=== PATIENT | female | born 1945 | race Caucasian/White ===

== ENCOUNTER → 2017-01-05 | Outpatient (CLI) | payer BC ==
[~2017-01-05] MED LIST: ANT25 PO; METO50TA7
--- NOTE | 2017-01-05 12:40 | MAMMOGRAPHY REPORT ---
BILATERAL DIGITAL SCREENING MAMMOGRAM WITH CAD: 01/05/2017 CLINICAL HISTORY: Routine screening. Patient has no complaints. TECHNIQUE: Current study was also evaluated with a Computer Aided Detection (CAD) system. Bilatera l CC and MLO views were obtained. COMPARISON: Comparison is made to exams dated: 01/02/2015 mammogram, 01/03/2014 mammogram, 01/03/2014 ultrasound, 12/30/2013 mammogram, 12/29/2012 mammogram, and 12/12/2010 mammogram - [facility]. BREAST COMPOSITION: There are scattered areas of fibroglandular density in both breasts. FINDINGS: No suspicious masses, calcifications, or areas of architectural distortion are noted in e ither breast. There has been no significant interval change compared to prior exams. Scattered bilat eral benign-appearing calcifications are not significantly changed. IMPRESSION: ACR BI-RADS CATEGORY 2: BENIGN There is no mammographic evidence of malignancy. A 1 year screening mammogram is recommended. The p atient will receive written notification of the results. Approximately 10% of breast cancers are not detected with mammography. A negative mammographic repor t should not delay biopsy if a clinically suggestive mass is present. Courtney Garcia M.D. /:01/05/2017 11:49:35 Transfer Car Operator: Desirae Severino, [facility] letter sent: Normal 1/2 BI-RADS Code: ACR BI-RADS Category 2: Benign
== END | disposition home or self-care (01) ==
LOC: C.MAMM 09:47
PROVIDERS: ATTEND Family Medicine
DX: Z12.31 Encounter for screening mammogram for malignant neoplasm of breast (principal)

== ENCOUNTER → 2017-10-12 | Outpatient (CLI) | payer BC | END | disposition home or self-care (01) | LOC: C.MAMM 09:49 | PROVIDERS: ATTEND Family Medicine | DX: M85.88 Other specified disorders of bone density and structure, other site (principal) ==

== ENCOUNTER 2018-02-12 00:54 | Emergency (ER) | payer BC ==
[~2018-02-12] VITALS: Ht 160 cm; Wt 73.0 kg
[~2018-02-12 00:54] MED LIST changes: -METO50TA7; +METO50TA8
[2018-02-12 01:04] VITALS: TEMP 36.4; Ht 160 cm; Wt 73.0 kg
[2018-02-12 02:34] LABS: BASO % 0.5 %; BASO ABS # 0.05 K/uL (0-0.2); EOS % 4.5 %; EOS ABS # 0.42 K/uL (0-0.5); HEMATOCRIT 38.5 % (37-47); IG# 0.03 K/uL (0.00-0.02); LYMPH % 24.3 %; LYMPH ABS # 2.27 K/uL (1.2-3.4); MEAN CELL VOLUME 89.3 fL (80-100); MEAN CORPUSCULAR HEMOGLOBIN 32.5 pg (25-34); MEAN CORPUSCULAR HGB CONC 36.4 g/dl (32-36); MEAN PLATELET VOLUME 11.2 fL (7.4-10.4); MONO % 6.6 %; MONO ABS # 0.62 K/uL (0.11-0.59); NEUT % 63.8 %; NEUT ABS # 5.96 K/uL (1.4-6.5); PLATELET COUNT 221 K/uL (130-400); RED CELL DISTRIBUTION WIDTH CV 13.8 % (11.5-14.5); RED CELL DISTRIBUTION WIDTH SD 44.9 fL (36.4-46.3); WHITE BLOOD COUNT 9.35 K/uL (4.8-10.8)
[2018-02-12] MEDS ORDERED: HydrALAZINE HCL 20 MG/ML VIAL IV. STA (02:47)
--- NOTE | 2018-02-12 02:49 | EMERGENCY ROOM VISIT NOTE ---
History Report prepared by Neo: Carole Pace Under the Supervision of: Dr. Pamela Hines D.O. First contact with patient: 02:01 Chief Complaint: HYPERTENSION Stated Complaint: HIGH BLOOD PRESSURE History of Present Illness The patient is a 72 year old female who presents to the Emergency Room with complaints of persistent high blood pressure starting 1600 today. The patient has a history of hypertension and is on lisinopril and metoprolol. She takes her blood pressure when she feels that it might be high. Today she checked her blood pressure at 1600 because she had a headache. She found that it was high. It is normally not this high. She took an extra dose of metoprolol and lisinopril which normally improves her blood pressure. She continued to check her blood pressure, but found that it would not go down. She has never experienced this before. Her headache is in the front like a sinus headache. She is having some tingling in her feet which she has had before. She denies any nausea, dizziness, blurry vision, chest pain, SOB, fever, chills, cough, leg swelling, change in bowel movement, or urinary symptoms. She notes that she had [place] food for lunch today and notes that she normally does not have change in blood pressure with her diet. She denies any change in activity. She states that she does not drink a lot of water. She had some congestion over the past 2 weeks which has resolved. Source of History: patient Onset: 1600 today Position: other (constitutional) Symptom Intensity: 193/100 Quality: other (high blood pressure) Timing: other (persistent) Associated Symptoms: + headache, No fevers, No chills, No cough, No chest pain, No SOB, No nausea, No urinary symptoms Review of Systems See HPI for pertinent positives & negatives. A total of 10 systems reviewed and were otherwise negative. Past Medical & Surgical Medical Problems: (1) Hypertension Family History No pertinent family history stated. Social History Smoking Status: Never Smoker Marital Status: Occupation Status: retired Current/Historical Medications Scheduled Levothyroxine Sodium (Levothyroxine Sodium), 50 MCG PO DAILY Lisinopril (Prinivil), 10 MG PO DAILY Metoprolol Succinate (Metoprolol Succinate ER), 100 MG PO DAILY Rosuvastatin Calcium (Crestor), 5 MG PO DAILY Allergies Coded Allergies: Penicillins (Verified Allergy, Mild, 2/5/10) Physical Exam Vital Signs Date Time Temp Pulse Resp B/P (MAP) Pulse Ox O2 Delivery O2 Flow Rate FiO2 02/12/18 05:24 53 18 163/78 100 02/12/18 04:30 59 18 160/64 100 Room Air 02/12/18 04:15 52 18 156/95 100 Room Air 02/12/18 04:00 53 18 152/74 100 Room Air 02/12/18 03:45 53 18 173/87 100 Room Air 02/12/18 03:33 50 18 174/90 99 Room Air 02/12/18 02:56 50 16 171/85 99 Room Air 02/12/18 01:42 55 18 204/74 99 Room Air 02/12/18 01:40 54 02/12/18 01:04 36.4 54 20 210/79 100 Room Air Physical Exam GENERAL: alert, well appearing, well nourished, no distress, non-toxic EYE EXAM: normal conjunctiva, PERRL and EOM's grossly intact OROPHARYNX: no exudate, no erythema, lips, buccal mucosa, and tongue normal and mucous membranes are moist NECK: supple, no nuchal rigidity, no adenopathy, non-tender LUNGS: Clear to auscultation. Normal chest wall mechanics HEART: no murmurs, S1 normal and S2 normal ABDOMEN: abdomen soft, non-tender, normo-active bowel sounds, no masses, no rebound or guarding. BACK: Back is symmetrical on inspection and there is no deformity, no midline tenderness, no CVA tenderness. SKIN: no rashes and no bruising UPPER EXTREMITIES: upper extremities are grossly normal. LOWER EXTREMITIES: No pitting edema. NEURO EXAM: Normal sensorium, cranial nerves II-XII grossly intact, normal speech, no gross weakness of arms, no gross weakness of legs. Medical Decision & Procedures ER Provider Diagnostic Interpretation: X-ray: I interpreted the following studies. Chest: Negative for cardiomegaly, focal infiltrate, effusion, pulmonary edema, or wide mediastinum. Radiology results have been interpreted by the [employer] radiologist and reviewed by me. CT Head: Comparison: 11/08/08. Impression: No acute intracranial hemorrhage, mass, or shift in midline structure. Basal ganglia calcifications. Small vessel ischemic changes in the tory-ventricular and subcortical white matter. Laboratory Results 02/12/18 02:05 Red Blood Count 4.31, Mean Corpuscular Volume 89.3, Mean Corpuscular Hemoglobin 32.5, Mean Corpuscular Hemoglobin Concent 36.4, Mean Platelet Volume 11.2, Neutrophils (%) (Auto) 63.8, Lymphocytes (%) (Auto) 24.3, Monocytes (%) (Auto) 6.6, Eosinophils (%) (Auto) 4.5, Basophils (%) (Auto) 0.5, Neutrophils # (Auto) 5.96, Lymphocytes # (Auto) 2.27, Monocytes # (Auto) 0.62, Eosinophils # (Auto) 0.42, Basophils # (Auto) 0.05 02/12/18 02:05 Test 02/12/18 02:05 White Blood Count 9.35 K/uL (4.8-10.8) Red Blood Count 4.31 M/uL (4.2-5.4) Hemoglobin 14.0 g/dL (12.0-16.0) Hematocrit 38.5 % (37-47) Mean Corpuscular Volume 89.3 fL (80-100) Mean Corpuscular Hemoglobin 32.5 pg (25-34) Mean Corpuscular Hemoglobin Concent 36.4 g/dl (32-36) Platelet Count 221 K/uL (130-400) Mean Platelet Volume 11.2 fL (7.4-10.4) Neutrophils (%) (Auto) 63.8 % Lymphocytes (%) (Auto) 24.3 % Monocytes (%) (Auto) 6.6 % Eosinophils (%) (Auto) 4.5 % Basophils (%) (Auto) 0.5 % Neutrophils # (Auto) 5.96 K/uL (1.4-6.5) Lymphocytes # (Auto) 2.27 K/uL (1.2-3.4) Monocytes # (Auto) 0.62 K/uL (0.11-0.59) Eosinophils # (Auto) 0.42 K/uL (0-0.5) Basophils # (Auto) 0.05 K/uL (0-0.2) RDW Standard Deviation 44.9 fL (36.4-46.3) RDW Coefficient of Variation 13.8 % (11.5-14.5) Immature Granulocyte % (Auto) 0.3 % Immature Granulocyte # (Auto) 0.03 K/uL (0.00-0.02) Prothrombin Time 10.4 SECONDS (9.0-12.0) Prothromb Time International Ratio 1.0 (0.9-1.1) Anion Gap 10.0 mmol/L (3-11) Est Creatinine Clear Calc Drug Dose 51.1 ml/min Estimated GFR () 67.7 Estimated GFR (Non- 58.4 BUN/Creatinine Ratio 10.9 (10-20) Calcium Level 9.7 mg/dl (8.5-10.1) Magnesium Level 2.0 mg/dl (1.8-2.4) Total Bilirubin 0.6 mg/dl (0.2-1) Aspartate Amino Transf (AST/SGOT) 19 U/L (15-37) Alanine Aminotransferase (ALT/SGPT) 24 U/L (12-78) Alkaline Phosphatase 68 U/L (45-117) Troponin I 0.025 ng/ml (0-0.045) Pro-B-Type Natriuretic Peptide 340 pg/ml (0-900) Total Protein 8.0 gm/dl (6.4-8.2) Albumin 4.3 gm/dl (3.4-5.0) Globulin 3.7 gm/dl (2.5-4.0) Albumin/Globulin Ratio 1.2 (0.9-2) Laboratory results per my review. Medications Administered Medications (Trade) Dose Ordered Sig/Radha Route Start Time Stop Time Status Last Admin Dose Admin Hydralazine HCl (HydrALAZINE INJ) 10 mg NOW STAT IV. 02/12/18 02:47 02/12/18 02:48 DC 02/12/18 03:50 5 MG ECG Per My Interpretation Indication: other (hypertension) Rate (beats per minute): 51 Rhythm: sinus bradycardia Findings: no acute ischemic change, no ectopy, other (normal axis, normal intervals) ED Course 0205: The patient was evaluated in room A3. A complete history and physical exam was performed. 0247: Hydralazine HCl 5 mg IV. 0308: I reevaluated the patient. Her pressure is coming down. 0341: I reevaluated the patient. She still has a slight headache. Her blood pressure is now in the 170s/90s. 0458: Upon reevaluation, the patient is feeling better. She no longer has a headache. I discussed the findings and the treatment plan with the patient. She verbalizes agreement and understanding. She was discharged home. Medical Decision Differential diagnosis: Etiologies such as benign hypertension, hypertensive emergency, cardiovascular pathology, pheochromocytoma, electrolyte abnormality, renal disease, endorgan damage, as well as others were entertained. Patient well-appearing her despite complaints, and I feel there is a slight anxiety regarding her blood pressure that contributes to the elevated numbers. Patient checks her blood pressure frequently, and upon finding it was mildly elevated begin to check it every hour, and then take additional medications as previously discussed with her family doctor. Patient with symptoms suggestive of mild hypertensive urgency, no evidence of endorgan damage, no vision changes , and had a normal nonfocal neuro exam at bedside. Labs and imaging reassuring. Patient given 5 mg of hydralazine which brought her blood pressure down, and helped her headache completely resolved. Patient counseled on a low- salt diet, adequate hydration with water, continued use of her routine blood pressure medications, close follow-up with her family doctor to discuss the events tonight. Discussed with patient at length symptoms to watch and return for, concern for prolonged elevated blood pressure readings, and very high isolated readings, all questions answered at bedside, patient verbalized understanding of all this and was agreeable with plan. Patient well-appearing at time of discharge, with no symptoms, ambulate in with a steady gait, tolerating p.o., and anxious to go home. I do not suspect occult cardiac or vascular pathology, doubt occult infectious etiology. Very mild hypokalemia noted. Medication Reconcilliation Current Medication List: was personally reviewed by me Blood Pressure Screening Patient's blood pressure: Elevated blood pressure Blood pressure disposition: Referred to PCP Impression Primary Impression: Hypertensive urgency Scribe Attestation The scribe's documentation has been prepared under my direction and personally reviewed by me in its entirety. I confirm that the note above accurately reflects all work, treatment, procedures, and medical decision making performed by me. Departure Information Dispostion Home / Self-Care Referrals Yadi Moreno M.D. (PCP) Patient Instructions My [facility] Additional Instructions Please call and follow-up with your family doctor regarding your elevated blood pressure at night and your current medications for your blood pressure. Please avoid any additional salt in your diet at this can contribute to high blood pressure. Please make sure you are staying well-hydrated and drinking plenty of water. If you have any recurrent headaches, develop dizziness, chest pain, trouble breathing, vision changes, numbness or tingling, swelling, difficulty urinating, you have any other new concerns, please return the emergency room.
[2018-02-12 02:53] LABS: ALBUMIN 4.3 gm/dl (3.4-5.0); CALCIUM 9.7 mg/dl (8.5-10.1); CREATININE 0.98 mg/dl (0.60-1.20); POTASSIUM 3.3 mmol/L (3.5-5.1)
[2018-02-12] MEDS ORDERED: TPRSR/100 PO (03:27)
[2018-02-12] MEDS ORDERED: LISI10TA PO (03:28)
[2018-02-12] MEDS ORDERED: LEVO50TA6 PO (03:29)
[2018-02-12] MEDS ORDERED: ROSU5TAB PO (03:31)
[2018-02-12 05:24] VITALS: BP 163/78; PULSE 53; O2SAT 100
--- NOTE | 2018-02-12 06:34 | DIAGNOSTIC IMAGING REPORT ---
CT HEAD WITHOUT CONTRAST (CT) CLINICAL HISTORY: Headache, hypertension COMPARISON STUDY: November 08, 2008 TECHNIQUE: Axial CT of the brain is performed from the vertex to the skull base. IV contrast was not administered for this examination. A dose lowering technique was utilized adhering to the principles of ALARA. CT DOSE: 537.48 mGy.cm FINDINGS: No intra or extra-axial mass lesions are visualized. There is no CT evidence of acute cortical infarction. There is no evidence of midline shift. There is no acute hemorrhage. No calvarial fractures are visualized. There are patchy white matter hypodensities likely on a small vessel basis. There is no evidence of pathologic ventricular dilatation. There is no evidence of acute sinusitis IMPRESSION: No acute intracranial findings Electronically signed by: aTm Dailey M.D. 02/12/2018 6:33 AM Dictated Date/Time: 02/12/2018 6:32 AM
--- NOTE | 2018-02-12 07:02 | DIAGNOSTIC IMAGING REPORT ---
CHEST ONE VIEW PORTABLE CLINICAL HISTORY: Hypertension COMPARISON STUDY: No previous studies for comparison. FINDINGS: The cardiac and mediastinal contours are normal. There is no evidence of focal pulmonary consolidation. There is no evidence of failure. No pleural effusions are visualized.[ IMPRESSION: No active disease in the chest. Electronically signed by: Tam Dailey M.D. 02/12/2018 7:00 AM Dictated Date/Time: 02/12/2018 7:00 AM
== END 2018-02-12 05:24 | disposition home or self-care (01) ==
LOC: C.EDB 00:55 → C.EDA 05:24
DX: I10 Essential (primary) hypertension (principal); Z88.0 Allergy status to penicillin

== ENCOUNTER 2018-02-16 02:57 | Emergency (ER) | payer BC ==
[~2018-02-16] VITALS: Ht 157.5 cm; Wt 72.8 kg
[~2018-02-16 02:57] MED LIST changes: -ANT25 PO; +LEVO50TA6 PO; +LISI10TA PO; -METO50TA8; +ROSU5TAB PO; +TPRSR/100 PO
[2018-02-16 02:59] VITALS: TEMP 36.5; Ht 157.5 cm; Wt 72.8 kg
--- NOTE | 2018-02-16 03:40 | EMERGENCY ROOM VISIT NOTE ---
History Report prepared by Neo: Issac Nicole Under the Supervision of: Dr. Marisabel Alamo D.O. First contact with patient: 03:19 Chief Complaint: HYPERTENSION Stated Complaint: HIGH BLOOD PRESSURE History of Present Illness The patient is a 72 year old female who presents to the Emergency Room with complaints of persistent general hypertension since February 11, 2018. She states that she was recently seen in the ED at that time for similar symptoms. She has a history of HTN, though she takes blood pressure medication. She states that she has been taking her medication, though she reports the medication is not working well and her pressure remains elevated. She notes that she cannot sleep if it is really high and she will check her blood pressure every hour throughout the night. She has checked her blood pressure 10 times tonight. She states that her blood pressure has been around 180/91. She states that she will take more blood pressure medication in hopes that her pressure will go down. She states that she had taken half a Metoprolol during the day and then took a whole dose when she realized the blood pressure would not decrease. She has seen her PCP for HTN, though she states that it is normally controlled. She has been taking her blood pressure four times a day on a normal day. She denies any history of anxiety. She had stewed tomatoes and a slice of bread for dinner. She reports eating macaroni and cheese for lunch. She states that she had waffles with peanut butter for breakfast. She denies any increased stress. She denies any recent changes to her blood pressure medication. She drinks herbal tea, though is unsure if it is caffeinated. Source of History: patient Onset: February 11, 2018 Position: other (general ) Quality: other (hypertension) Timing: other (persistent) Note: She denies any increased stress. Review of Systems See HPI for pertinent positives & negatives. A total of 10 systems reviewed and were otherwise negative. Past Medical & Surgical Medical Problems: (1) Hypertension Family History No pertinent family history Social History Smoking Status: Never Smoker Smokeless Tobacco Use: No Alcohol Use: none Drug Use: none Marital Status: Housing Status: lives with significant other Occupation Status: retired Current/Historical Medications Scheduled Levothyroxine Sodium (Levothyroxine Sodium), 50 MCG PO DAILY Lisinopril (Prinivil), 10 MG PO DAILY Metoprolol Succinate (Metoprolol Succinate ER), 100 MG PO DAILY Rosuvastatin Calcium (Crestor), 5 MG PO DAILY Allergies Coded Allergies: Penicillins (Verified Allergy, Mild, 02/16/18) Physical Exam Vital Signs Date Time Temp Pulse Resp B/P (MAP) Pulse Ox O2 Delivery O2 Flow Rate FiO2 02/16/18 04:08 56 18 160/95 100 02/16/18 03:26 57 18 179/83 99 Room Air 02/16/18 03:13 58 02/16/18 02:59 36.5 55 18 201/81 99 Room Air Physical Exam HEENT: Head - normocephalic and atraumatic Pupils are equal, round, and reactive to light. Extraocular eye muscles are intact, and sclera are anicteric. Nose - moist nasal mucosa without discharge. Mouth - moist buccal mucosa. Oropharynx is nonerythematous and there is no tonsillar exudate or edema noted. Neck: Supple; no JVD, nuchal rigidity, cervical lymphadenopathy. Heart: Regular rate and rhythm. There is a normal S1 and S2 with no murmurs, clicks, or gallops appreciated. Lungs: Clear to auscultation bilaterally with no wheezes, rales, or rhonchi. Abdomen: Soft, completely nontender, nondistended, with good bowel sounds. There are no palpable pulsatile masses or hepatosplenomegaly. There is no guarding, rigidity, or rebound noted. Extremities: No evidence of cyanosis, clubbing, or edema. There are easily palpable peripheral pulses. Skin: warm and dry with good turgor and no rashes. Medical Decision & Procedures ECG Per My Interpretation Indication: other (hypertension) Rate (beats per minute): 57 Rhythm: sinus bradycardia Findings: no acute ischemic change, no ectopy ED Course 0322: Past medical records reviewed. The patient was evaluated in room B2. A complete history and physical exam was performed. A 12-lead EKG was obtained. The patient was observed on the groundwater monitoring technician and had her blood pressure followed. The patient's blood pressure continued to drop while she was here in the emergency department. 0412: I reassessed the patient at this time. She was sleeping but then woke up. She feels much better. Her blood pressure is 157/74. The patient admits that she is extremely stressed out because she is taking care of her six month old grandson. She also states that she uses salt on most everything she eats. Medical Decision The patient is a 72 year old female who presents to the ED with hypertension. Differential diagnosis includes hypertensive urgency, anxiety, and medication noncompliance. This is a 72-year-old female patient who presents to the emergency department with a persistent high blood pressure. The patient has been taking her blood pressure frequently this evening and took extra doses of her antihypertensive medications but noted that her blood pressure was not coming down at all. It seems that the patient is becoming more anxious when she notices that the blood pressure is high and remains high or elevates despite her taking extra doses of antihypertensives. The patient's blood pressure is slightly elevated here this morning but not high enough to need an acute lowering. I have encouraged the patient to avoid checking her blood pressures are frequently throughout the day or night. I explained that as she becomes more sleep deprived, the blood pressure will elevate. With each repeat blood pressure check that reveals an elevated blood pressure, it causes her to become more anxious and the blood pressure will go even higher. The patient has a follow-up appointment today with her PCP. I suggested that she take her blood pressure only 2-3 times a day at different times the day and keep a log. She should not take extra doses of her antihypertensives, specifically her beta-roosevelt which has dropped her heart rate into the low 50s. I spent a great deal of time talking to the patient about her diet. I have encouraged her to avoid caffeine and added salt. The patient was told to come back to the emergency department if she noted that her blood pressure was high and she was having symptoms. Medication Reconcilliation Current Medication List: was personally reviewed by me Blood Pressure Screening Patient's blood pressure: Elevated blood pressure Blood pressure disposition: Referred to PCP Impression Primary Impression: Hypertension Scribe Attestation The scribe's documentation has been prepared under my direction and personally reviewed by me in its entirety. I confirm that the note above accurately reflects all work, treatment, procedures, and medical decision making performed by me. Departure Information Dispostion Home / Self-Care Referrals Yadi Moreno M.D. (PCP) Forms HOME CARE DOCUMENTATION FORM, IMPORTANT VISIT INFORMATION, WORK / SCHOOL INSTRUCTIONS Patient Instructions Hypertension Control, Hypertension Mo, My [facility] Additional Instructions Rest. Take your BP only 2 times a day. Avoid all extra added salt to food. Take meds only as directed. Follow up with PCP Problem Qualifiers Primary Impression: Hypertension Hypertension type: essential hypertension Qualified Codes: I10 - Essential ( primary) hypertension
[2018-02-16 04:08] VITALS: BP 160/95; PULSE 56; O2SAT 100
== END 2018-02-16 04:38 | disposition home or self-care (01) ==
LOC: C.EDB 02:58
DX: I10 Essential (primary) hypertension (principal); Z88.0 Allergy status to penicillin; R59.0 Localized enlarged lymph nodes

== ENCOUNTER 2021-01-13 09:13 | Observation (INO) ==
[2021-01-13] MEDS ORDERED: ONDANSETRON INJ 2 MG/ML 2 ML VIAL IV STA (09:37)
[2021-01-13] MEDS ORDERED: cefTRIAXone SODIUM 1,000 MG/50 ML BAG IV STA (09:37)
[2021-01-13] MEDS ORDERED: CLINDAMYCIN 600 MG in DEXTROSE 5% 50 ML IV ONE (09:37)
[2021-01-13] MEDS ORDERED: MoRPHine SULFATE 4 MG/ML 1 ML CARP\\VIAL IV PRN (09:37)
--- NOTE | 2021-01-13 09:44 | Emergency Department Note ---
Impression & Plan Cellulitis of face ED Provider Note NAME: DARYA ROBERTSON AGE: 75 SEX: F : 1945 ARRIVES VIA: Walk-In INFORMANT: Patient, ED PROVIDER(S): Neftali Meyer DO CHIEF COMPLAINT: Facial pain HPI: The patient is a 75-year-old female who presented to the emergency department for an evaluation of facial pain. The patient states her symptoms began approximately 3 days ago. She does mention that she received the Covid vaccination on and feels that the symptoms began after she received the injection. She complains of headache dental pain facial pain and swelling over the right side of her face and neck. She denies having any chest pain or difficulty breathing. She denies having any fever. She denies having any nicole inage or foul taste in her mouth. She is never had similar symptoms in the past. She states the pain is moderate to severe. She has been trying [id number] pain medication without relief. She did not see a provider for this pain. She states the pain is worsened with opening and closing her mouth as well as palpation over the right side of her face. ROS: See above HPI for pertinent positives & negatives. A total of 10 systems reviewed and were otherwise negative. PAST MEDICAL HISTORY: See Below PAST SURGICAL HISTORY: See Below FAMILY HISTORY: See Below SOCIAL HISTORY: See Below HOME MEDICATIONS: See Below ALLERGIES: See Below VITALS: See Below PHYSICAL EXAMINATION: GENERAL: The patient is awake and alert. The patient is very anxious appearing appears to be uncomfortable. EYES: The conjunctivae are clear. The pupils are round and reactive. EARS, NOSE, MOUTH AND THROAT: The nose is without any evidence of any deformity. There is significant swelling over the right side of the face especially in the right submandibular region. There is erythema overlying the skin. There is also swelling on the right lower lip. In the right lower gumline there is some fluctuant area noted. The tooth itself does not appear to be tender to palpation. There is significant buccal swelling as well. NECK: There is no posterior tenderness over the neck. There is significant right submandibular swelling to palpation. RESPIRATORY: Normal respiratory effort is noted there is no evidence of wheezing rhonchi or rales CARDIOVASCULAR: Regular rate and rhythm noted there no murmurs rubs or gallops normal S1 normal S2. GASTROINTESTINAL: The abdomen is soft. Abdomen is nontender. MUSCULOSKELETAL/EXTREMITIES: There is no evidence of gross deformity full range of motion is noted in the hips and shoulders. SKIN: There is no obvious evidence of any rash. There are no petechiae, pallor or cyanosis noted. NEUROLOGIC: Patient is awake alert and oriented x3. MEDICAL DECISION MAKING: The patient is a 75-year-old female who presented to the emergency department for an evaluation of facial pain. The patient had significant facial swelling. She had no organized abscess. She has no history of diabetes. This does not have the appearance of definite Shen's angina at this time. I discussed the patient's laboratory and radiographic studies with her. She was treated with IV antibiotics in the emergency department. Given the patient's age and comorbidities I also discussed this case with the [facility]. They have agreed to evaluate the patient in the emergency department for further management and disposition. Triage Nursing notes reviewed. Prior medical records reviewed Vital Signs: reviewed and remarkable for no significant abnormalities Differential diagnosis: Dental caries, dental abscess, Ludwigs angina, Vincent angina, dental fracture, facial cellulitis, parotitis, osteomyelitis, sinus infection, peritonsillar abscess. ER treatment provided: See below Diagnostics interpreted by me: ECG: none Cardiac Monitoring: An order was placed for continuous cardiac monitoring. The monitor shows a rate of 82 bpm with sinus rhythm. Laboratory studies: As stated above and show below. Imaging studies: See below Consultation(s): I discussed this case with Dr. Barnett who is on-call for the [facility] hospitalist group. He will evaluate the patient in the emergency department for further management and disposition. Past Med/Surg History Medical History Bicuspid aortic valve Goiter Lizeth's thyroiditis Hyperlipidemia Hypertension Hypothyroidism Moderate aortic stenosis Moderate obstructive sleep apnea Osteopenia Vitamin D deficiency Social History Smoking Status: Never smoker Hx Alcohol Use: No Hx Substance Use: No Preferred Language: Yoruba Communication Ability: Effective Beliefs That Will Affect Care: None Current Living Situation: Spouse Other Information That Helps Us Care for You: No Feels Safe at Home: Yes Safety Concerns: Feels Safe At This Time Assistive Devices: Glasses Allergies Allergies Allergy/AdvReac Type Severity Reaction Status Date / Time Penicillins Allergy Mild Verified 01/13/21 10:34 Home Meds Home Medications Medication Instructions Recorded Confirmed aspirin 81 mg tablet,delayed 81 mg PO HS 12/19/20 01/13/21 release hydrochlorothiazide 12.5 mg tablet 12.5 mg PO QAM 12/19/20 01/13/21 lisinopril 20 mg tablet 20 mg PO QAM 12/19/20 01/13/21 metoprolol succinate 100 mg 50 mg PO BID 12/19/20 01/13/21 tablet,extended release 24 hr cholecalciferol (vitamin D3) 0 mcg PO QAM 01/13/21 01/13/21 [Vitamin D3] cranberry fruit concentrate 0 mg PO QAM 01/13/21 01/13/21 levothyroxine 75 mcg PO DAILYBB 01/13/21 01/13/21 vitamin B complex 1 tab PO QAM 01/13/21 01/13/21 Results & Data (ED) Vital Signs Vital Signs - 24 hr 01/13/21 09:16 01/13/21 11:30 01/13/21 12:00 Temperature 36.8 C Temperature Source Oral Pulse Rate 81 76 71 Pulse Rate from SpO2 Sensor 76 71 Pulse Rhythm Regular Pulse Strength Normal Respiratory Rate 18 20 16 Respiratory Effort / Characteristics Non-Labored Spontaneous Respiratory Depth Normal Blood Pressure 165/90 H 158/84 H 148/82 H Blood Pressure Mean 115 108 104 Blood Pressure Position Sitting Pulse Oximetry 97 96 98 Oxygen Delivery Method Room Air Sepsis Recent Fever Within 48 Hours No Sepsis New/Unexplained Change in Mental Status N/A Sepsis Action Taken by Nursing No Action Required 01/13/21 12:30 Temperature Temperature Source Pulse Rate Pulse Rate from SpO2 Sensor 67 Pulse Rhythm Pulse Strength Respiratory Rate 20 Respiratory Effort / Characteristics Respiratory Depth Blood Pressure 147/63 H Blood Pressure Mean 91 Blood Pressure Position Pulse Oximetry 96 Oxygen Delivery Method Sepsis Recent Fever Within 48 Hours Sepsis New/Unexplained Change in Mental Status Sepsis Action Taken by Assisted Medications Current Medication List: was personally reviewed by me Laboratory Data Attestation: I reviewed the patient's lab results. Result diagrams: 01/13/21 10:00 01/13/21 10:00 Lab Results 01/13/21 01/13/21 01/13/21 Range/Units 10:00 10:00 10:00 WBC 17.91 H (4.8-10.8) K/uL RBC 4.69 (4.2-5.4) M/uL Hgb 15.5 (12.0-16.0) g/dL POC Hgb (12.0-16.0) g/dl Hct 44.1 (37-47) % POC Hct (37-47) % MCV 94.0 (80-100) fL MCH 33.0 (25-34) pg MCHC 35.1 (32-36) g/dL RDW Std Deviation 46.1 (36.4-46.3) fL RDW Coeff of Emely 13.4 (11.5-14.5) % Plt Count 289 (130-400) K/uL MPV 10.4 (7.4-10.4) fL Immature Gran % (Auto) 0.3 % Neut % (Auto) 74.6 % Lymph % (Auto) 14.0 % Ransom % (Auto) 10.5 % Eos % (Auto) 0.4 % Baso % (Auto) 0.2 % Neut # (Auto) 13.36 H (1.4-6.5) K/uL Lymph # (Auto) 2.51 (1.2-3.4) K/uL Ransom # (Auto) 1.88 H (0.11-0.59) K/uL Eos # (Auto) 0.08 (0-0.5) K/uL Baso # (Auto) 0.03 (0-0.2) K/uL Immature Gran # (Auto) 0.05 H (0.00-0.02) K/uL ESR 21 (0-21) mm/hr POC Sodium (135-144) mmol/L Sodium 134 L (136-145) mmol/L POC Potassium (3.3-5.0) mmol/L Potassium 4.4 (3.5-5.1) mmol/L POC Chloride (101-112) mmol/L Chloride 100 (98-107) mmol/L Carbon Dioxide 26 (21-32) mmol/L POC Total CO2 (24-31) mmol/L Anion Gap 9.0 (3-11) POC Anion Gap (16-25) mmol/L POC BUN (7-18) mg/dl BUN 22 H (7-18) mg/dl Creatinine 1.51 H (0.6-1.2) mg/dl POC Creatinine (0.6-1.3) mg/dl Est Cr Clr Drug Dosing 30.6 ml/min Est GFR ( Amer) 39.3 Est GFR (Non-Af Amer) 33.9 BUN/Creatinine Ratio 14.6 (10-20) Glucose 122 H (70-99) mg/dl POC Glucose (other) (70-99) mg/dl Calcium 10.4 H (8.5-10.1) mg/dl POC Ioniz Calcium Alicia (1.12-1.32) mmol/l Total Bilirubin 1.0 (0.2-1) mg/dl AST 17 (15-37) U/L ALT 28 (12-78) U/L Alkaline Phosphatase 86 (45-117) U/L C-Reactive Protein 8.39 H (0-0.29) mg/dl Total Protein 8.9 H (6.4-8.2) gm/dl Albumin 4.3 (3.4-5.0) gm/dl Globulin 4.6 H (2.5-4.0) gm/dl Albumin/Globulin Ratio 0.9 (0.9-2) Lipase 133 (73-393) U/L Procalcitonin (0-0.5) ng/ml COVID-19 Eval Order SARS-CoV-2, RNA, NAAT (NEGATIVE) 01/13/21 01/13/21 01/13/21 Range/Units 10:00 10:06 12:44 WBC (4.8-10.8) K/uL RBC (4.2-5.4) M/uL Hgb (12.0-16.0) g/dL POC Hgb 15.3 (12.0-16.0) g/dl Hct (37-47) % POC Hct 45 (37-47) % MCV (80-100) fL MCH (25-34) pg MCHC (32-36) g/dL RDW Std Deviation (36.4-46.3) fL RDW Coeff of Emely (11.5-14.5) % Plt Count (130-400) K/uL MPV (7.4-10.4) fL Immature Gran % (Auto) % Neut % (Auto) % Lymph % (Auto) % Ransom % (Auto) % Eos % (Auto) % Baso % (Auto) % Neut # (Auto) (1.4-6.5) K/uL Lymph # (Auto) (1.2-3.4) K/uL Ransom # (Auto) (0.11-0.59) K/uL Eos # (Auto) (0-0.5) K/uL Baso # (Auto) (0-0.2) K/uL Immature Gran # (Auto) (0.00-0.02) K/uL ESR (0-21) mm/hr POC Sodium 136 (135-144) mmol/L Sodium (136-145) mmol/L POC Potassium 4.6 (3.3-5.0) mmol/L Potassium (3.5-5.1) mmol/L POC Chloride 102 (101-112) mmol/L Chloride (98-107) mmol/L Carbon Dioxide (21-32) mmol/L POC Total CO2 25 (24-31) mmol/L Anion Gap (3-11) POC Anion Gap 15.0 L (16-25) mmol/L POC BUN 23 H (7-18) mg/dl BUN (7-18) mg/dl Creatinine (0.6-1.2) mg/dl POC Creatinine 1.3 (0.6-1.3) mg/dl Est Cr Clr Drug Dosing ml/min Est GFR ( Amer) Est GFR (Non-Af Amer) BUN/Creatinine Ratio (10-20) Glucose (70-99) mg/dl POC Glucose (other) 127 H (70-99) mg/dl Calcium (8.5-10.1) mg/dl POC Ioniz Calcium Alicia 1.18 (1.12-1.32) mmol/l Total Bilirubin (0.2-1) mg/dl AST (15-37) U/L ALT (12-78) U/L Alkaline Phosphatase (45-117) U/L C-Reactive Protein (0-0.29) mg/dl Total Protein (6.4-8.2) gm/dl Albumin (3.4-5.0) gm/dl Globulin (2.5-4.0) gm/dl Albumin/Globulin Ratio (0.9-2) Lipase (73-393) U/L Procalcitonin 0.18 (0-0.5) ng/ml COVID-19 Eval [facility] SARS-CoV-2, RNA, NAAT (NEGATIVE) 01/13/21 Range/Units 12:44 WBC (4.8-10.8) K/uL RBC (4.2-5.4) M/uL Hgb (12.0-16.0) g/dL POC Hgb (12.0-16.0) g/dl Hct (37-47) % POC Hct (37-47) % MCV (80-100) fL MCH (25-34) pg MCHC (32-36) g/dL RDW Std Deviation (36.4-46.3) fL RDW Coeff of Emely (11.5-14.5) % Plt Count (130-400) K/uL MPV (7.4-10.4) fL Immature Gran % (Auto) % Neut % (Auto) % Lymph % (Auto) % Ransom % (Auto) % Eos % (Auto) % Baso % (Auto) % Neut # (Auto) (1.4-6.5) K/uL Lymph # (Auto) (1.2-3.4) K/uL Ransom # (Auto) (0.11-0.59) K/uL Eos # (Auto) (0-0.5) K/uL Baso # (Auto) (0-0.2) K/uL Immature Gran # (Auto) (0.00-0.02) K/uL ESR (0-21) mm/hr POC Sodium (135-144) mmol/L Sodium (136-145) mmol/L POC Potassium (3.3-5.0) mmol/L Potassium (3.5-5.1) mmol/L POC Chloride (101-112) mmol/L Chloride (98-107) mmol/L Carbon Dioxide (21-32) mmol/L POC Total CO2 (24-31) mmol/L Anion Gap (3-11) POC Anion Gap (16-25) mmol/L POC BUN (7-18) mg/dl BUN (7-18) mg/dl Creatinine (0.6-1.2) mg/dl POC Creatinine (0.6-1.3) mg/dl Est Cr Clr Drug Dosing ml/min Est GFR ( Amer) Est GFR (Non-Af Amer) BUN/Creatinine Ratio (10-20) Glucose (70-99) mg/dl POC Glucose (other) (70-99) mg/dl Calcium (8.5-10.1) mg/dl POC Ioniz Calcium Alicia (1.12-1.32) mmol/l Total Bilirubin (0.2-1) mg/dl AST (15-37) U/L ALT (12-78) U/L Alkaline Phosphatase (45-117) U/L C-Reactive Protein (0-0.29) mg/dl Total Protein (6.4-8.2) gm/dl Albumin (3.4-5.0) gm/dl Globulin (2.5-4.0) gm/dl Albumin/Globulin Ratio (0.9-2) Lipase (73-393) U/L Procalcitonin (0-0.5) ng/ml COVID-19 Eval Order SARS-CoV-2, RNA, NAAT NEGATIVE (NEGATIVE) Administered Medications Morphine Sulfate (Morphine Sulfate 4 Mg/Ml 1 Ml Carp\Vial) 4 mg IV Q30M PRN PRN Reason: Pain Stop: 01/27/21 09:36 Last Admin: 01/13/21 11:28 Dose: 4 mg Documented by: [id number] Discontinued Medications Sodium Chloride (Nss 1000ml) 1,000 mls @ 999 mls/hr IV .Q1H1M AURY Stop: 01/13/21 10:45 Last Infusion: 01/13/21 12:51 Dose: 0 mls/hr Documented by: [id number] Admin: 01/13/21 11:28 Dose: 999 mls/hr Documented by: [id number] Ceftriaxone Sodium (Rocephin) 1,000 mg in 50 mls @ 100 mls/hr IV NOW STA Stop: 01/13/21 10:06 Last Infusion: 01/13/21 12:52 Dose: 0 mls/hr Documented by: [id number] Admin: 01/13/21 12:10 Dose: 100 mls/hr Documented by: [id number] Clindamycin Phosphate 600 mg/ (Dextrose) 54 mls @ 100 mls/hr IV ONE ONE Stop: 01/13/21 10:09 Last Infusion: 01/13/21 11:53 Dose: 0 mls/hr Documented by: [id number] Admin: 01/13/21 11:20 Dose: 100 mls/hr Documented by: [id number] Metronidazole (Flagyl) 500 mg in 100 mls @ 100 mls/hr IV NOW STA Stop: 01/13/21 13:59 Last Admin: 01/13/21 13:35 Dose: 100 mls/hr Documented by: [id number] Ioversol (Ioversol 100ml) 94 ml IV ONCE ONE Stop: 01/13/21 11:07 Last Admin: 01/13/21 11:07 Dose: 94 ml Documented by: [id number] Ondansetron HCl (Ondansetron Inj 2 Mg/Ml 2 Ml Vial) 4 mg IV NOW STA Stop: 01/13/21 09:38 Last Admin: 01/13/21 11:28 Dose: 4 mg Documented by: [id number] Imaging Data Radiologist's Impression: [facility], [phone] CT Scan Report Patient: DARYA ROBERTSON Date: 01/13/21MR#: [id number]: [id number] ALYCE RDAcct ID:[id number]: Date: 1945[facility] Zip: [place] [id number]: 75Location: EDSex: FRoom/Bed:Att Phy:Diagnosis: RT SIDE OF FACE SWOLLEN S/P 2 COVID SHOUT 01/09Pri Phy: Yadi Moreno MDService Date: 01/13/21Fam Phy:Interpreting Phy: [facility]us AgarwalSt. Mary[facility] Centerludivina Phy: Ordering Phy: Neftali Meyer DO cc: ~ CT soft tissue neck w con HISTORY: 75 years-old Female right sided pain and swelling acute right-sided facial pain with soft tissue swelling COMPARISON: Head CT 02/12/2018 TECHNIQUE: Multiple axial CT images of the soft tissues of the neck were obtained following the intravenous administration of 94 mL Optiray 320. A dose lowering technique was used consistent with the principals of TIANA. FINDINGS: The imaged intracranial structures demonstrate no acute abnormality. Unremarkabl e orbits. There is moderate subcutaneous edema of the right mandibular tissues with edema tracking along the right platysma. No drainable fluid collection or discrete soft tissue mass identified. There are a few prominent submandibular lymph nodes measuring up to 1.8 x 0.7 cm. The bilateral parotid and submandibular glands are unremarkable. Unremarkable thyroid. Patent nasopharynx, oral pharynx and hypopharynx. Secretions are noted within the vallecula. The glottis and subglottic airway is within normal limits. Mild mucosal thickening of the ethmoid air cells. Mastoid air cells and remaining paranasal sinuses are clear. Streak artifact from dental amalgam hardware. No large periapical cysts or definitive dental caries identified. Multilevel degenerative changes of the cervical spine. Developmental bony fusion at C3-C4. Biapical reticular opacities, right greater than left may reflect s carring. No pneumothorax. IMPRESSION: 1. Moderate subcutaneous edema of the right mandibular and submandibular tissues suggests cellulitis without abscess or soft tissue mass. 2. Mildly prominent submandibular lymph nodes are likely reactive. ACT 112: Negative or not required by law. The above report was generated using voice recognition software. It may contain grammatical, syntax or spelling errors. Electronically signed by: Himanshu Agarwal M.D. 01/13/2021 11:39 AM Dictated: 01/13/21 1132Transcribed: 01/13/21 1132 Blood Pressure Blood Pressure Findings: Normal blood pressure Discharge Plan Visit Data Chief Complaint: Facial Injury/Pain Stated Complaint: RT SIDE OF FACE SWOLLEN S/P 2 COVID SHOUT 01/09 ED Provider: Neftali Meyer Discharge Problem: Cellulitis of face Patient Disposition: Admitted As Inpatient Condition: Good Discharge Instructions Interventions: ED Discharge Assessment Last Done: 01/13/21 13:55
[2021-01-13] MEDS ORDERED: SODIUM CHLORIDE 0.9% 1000ML 1,000 ML IV SCH (09:45)
[2021-01-13 10:18] LABS: Basophils # (auto) 0.03 K/uL (0-0.2); Basophils % (auto) 0.2 %; Eosinophils # (auto) 0.08 K/uL (0-0.5); Eosinophils % (auto) 0.4 %; Hematocrit (blood only) 44.1 % (37-47); Hemoglobin 15.5 g/dL (12.0-16.0); Immature Granulocytes # (auto) 0.05 K/uL (0.00-0.02); Immature Granulocytes % (auto) 0.3 %; Lymphocytes # (auto) 2.51 K/uL (1.2-3.4); Mean Corpuscular Hgb Conc 35.1 g/dL (32-36); Mean Platelet Volume 10.4 fL (7.4-10.4); Monocytes # (auto) 1.88 K/uL (0.11-0.59); Monocytes % (auto) 10.5 %; Neutrophils # (auto) 13.36 K/uL (1.4-6.5); Neutrophils % (auto) 74.6 %; Platelet Count 289 K/uL (130-400); RDW Coefficient of Variation 13.4 % (11.5-14.5); RDW Standard Deviation 46.1 fL (36.4-46.3); Red Blood Count 4.69 M/uL (4.2-5.4); White Blood Count 17.91 K/uL (4.8-10.8)
[2021-01-13 10:18] LABS: iSTAT Creatinine 1.3 mg/dl (0.6-1.3); iSTAT Hemoglobin 15.3 g/dl (12.0-16.0); iSTAT Ionized Calcium 1.18 mmol/l (1.12-1.32); iSTAT Potassium 4.6 mmol/L (3.3-5.0)
[2021-01-13 10:36] LABS: Albumin Level 4.3 gm/dl (3.4-5.0); BUN Creatinine Ratio 14.6 (10-20); C Reactive Protein 8.39 mg/dl (0-0.29); Calcium 10.4 mg/dl (8.5-10.1); Creatinine Clr Calc Pharmacy 30.6 ml/min; Est GFR (African American) 39.3; Est GFR (Non-African American) 33.9; Potassium 4.4 mmol/L (3.5-5.1)
[2021-01-13 10:39] LABS: Albumin Globulin Ratio 0.9 (0.9-2); Globulin 4.6 gm/dl (2.5-4.0); Total Protein 8.9 gm/dl (6.4-8.2)
[2021-01-13] MEDS ORDERED: OPTIRAY 320 100ml IV ONE (11:06)
--- NOTE | 2021-01-13 11:41 | CT Scan Report ---
CT soft tissue neck w con HISTORY: 75 years-old Female right sided pain and swelling acute right-sided facial pain with soft t issue swelling COMPARISON: Head CT 02/12/2018 TECHNIQUE: Multiple axial CT images of the soft tissues of the neck were obtained following the intra venous administration of 94 mL Optiray 320. A dose lowering technique was used consistent with the pr incipals of TIANA. FINDINGS: The imaged intracranial structures demonstrate no acute abnormality. Unremarkable orbits. There is mo derate subcutaneous edema of the right mandibular tissues with edema tracking along the right platysm a. No drainable fluid collection or discrete soft tissue mass identified. There are a few prominent s ubmandibular lymph nodes measuring up to 1.8 x 0.7 cm. The bilateral parotid and submandibular glands are unremarkable. Unremarkable thyroid. Patent nasopharynx, oral pharynx and hypopharynx. Secretions are noted within the vallecula. The glot tis and subglottic airway is within normal limits. Mild mucosal thickening of the ethmoid air cells. Mastoid air cells and remaining paranasal sinuses a re clear. Streak artifact from dental amalgam hardware. No large periapical cysts or definitive denta l caries identified. Multilevel degenerative changes of the cervical spine. Developmental bony fusion at C3-C4. Biapical reticular opacities, right greater than left may reflect scarring. No pneumothora x. IMPRESSION: 1. Moderate subcutaneous edema of the right mandibular and submandibular tissues suggests cellulitis without abscess or soft tissue mass. 2. Mildly prominent submandibular lymph nodes are likely reactive. ACT 112: Negative or not required by law. The above report was generated using voice recognition software. It may contain grammatical, syntax o r spelling errors. Electronically signed by: Himanshu Agarwal M.D. 01/13/2021 11:39 AM
--- NOTE | 2021-01-13 12:46 | History & Physical Report ---
Date of Service January 13, 2021 Assessment & Plan (1) Facial cellulitis: Penicillin allergy - ceftriaxone given in the emergency room with no reaction. Therefore we will continue ceftriaxone with metronidazole. Suspect spread from gingivitis Chlorhexidine mouth wash BID (2) MORGAN (acute kidney injury): Cr 1.51from 0.98 baseline. Suspect secondary to reduced PO intake with current infection. Continue NSS @ 125 ml/hr overnight. Repeat BMP in AM (3) Vitamin D deficiency: Continue vitamin D3 supplementation (4) Osteopenia: Continue vitamin D supplementation as above (5) Moderate aortic stenosis: Noted history of such (6) Bicuspid aortic valve: Noted (7) Moderate obstructive sleep apnea: Intolerant to CPAP (8) Hypertension: Continue HCTZ 12.5mg PO daily, lisinopril 20mg PO daily, metoprolol succinate 100mg PO daily (9) Hypothyroidism: TSH 24 in Nov. Reluctance to start/increase levothyroxine per endocrinology note. Continue levothyroxine 75 mcg PO daily. Follow up with endocrinology as outpatient. (10) Lizeth's thyroiditis: (11) Goiter: Admission and Anticipated Discharge Date Admission Date: Jan 13, 2021 History of Present Illness Chief Complaint: Right facial swelling Primary Care Provider: Yadi Moreno MD Margarita Lang is a 75-year-old female who presents to the ER with right facial swelling. She denies any fevers or chills. She reports having mild headache, low grade fever, tooth and ear pain 4 days ago after receiving her first COVI vaccination. She reports this improved however yesterday she noted progressively increasing right sided jaw/face swelling, erythema, right ear and bottom tooth pain starting yesterday. She denies any fevers or chills. Vaccination was in her left arm. She has not had much to eat or drink today due to the pain in her mouth and surrounding tissues. Currently pain 4/10 without radiation. Associated lymph node enlargement on right anterior neck. No difficulties breathing or food getting stuck. In the ER CT soft tissue neck was concerning for moderate subcutaneous edema of the right mandibular and submandibular tissues consistent with cellulitis with out abscess. She was referred to medicine for admission and ongoing management or right facial cellulitis. Allergies Allergy/AdvReac Type Severity Reaction Status Date / Time Penicillins Allergy Mild Verified 01/13/21 10:34 Home Medications Medication Instructions Recorded Confirmed Type aspirin 81 mg tablet,delayed 81 mg PO HS 12/19/20 01/13/21 History release hydrochlorothiazide 12.5 mg tablet 12.5 mg PO QAM 12/19/20 01/13/21 History lisinopril 20 mg tablet 20 mg PO QAM 12/19/20 01/13/21 History metoprolol succinate 100 mg 50 mg PO BID 12/19/20 01/13/21 History tablet,extended release 24 hr cholecalciferol (vitamin D3) 0 mcg PO QAM 01/13/21 01/13/21 History [Vitamin D3] cranberry fruit concentrate 0 mg PO QAM 01/13/21 01/13/21 History levothyroxine 75 mcg PO DAILYBB 01/13/21 01/13/21 History vitamin B complex 1 tab PO QAM 01/13/21 01/13/21 History acetaminophen 650 mg PO Q4H PRN #30 tab 01/15/21 Rx chlorhexidine gluconate 15 ml MT BID #118 ml 01/15/21 Rx clindamycin HCl 600 mg PO Q8H 5 Days #30 cap 01/15/21 Rx Past Med/Surg History Medical History Bicuspid aortic valve Goiter Lizeth's thyroiditis Hyperlipidemia Hypertension Hypothyroidism Moderate aortic stenosis Moderate obstructive sleep apnea Osteopenia Vitamin D deficiency Social History Smoking Status: Never smoker Hx Alcohol Use: No Hx Substance Use: No Preferred Language: Luxembourger Communication Ability: Effective Beliefs That Will Affect Care: None Current Living Situation: Spouse Feels Safe at Home: Yes Assistive Devices: None Review of Systems Review of Systems: All systems reviewed & are unremarkable except as noted in HPI & below Physical Exam Constitutional: well developed and well nourished; no acute distress Eyes: PERRL, conjunctivae normal, anicteric sclerae ENMT: Mouth: + gingival abnormality (Gingival muscosa sloughing external inferior tooth #30, tender); oral mucous membranes not dry and no loose teeth Respiratory: normal respiratory effort, lungs clear to auscultation Cardiovascular: Rate/Rhythm: regular rate and regular rhythm Heart Sounds: + murmur (Systolic 2/6 LUSB) Gastrointestinal (Abdomen): normal bowel sounds, soft, nontender, no hepatosplenomegaly Skin: Erythema and swelling of right side of her face including inferior lip, under mandible up to mid cheek. Neurologic: moves all extremities and awake; not confused Psychiatric: A+Ox3, euthymic affect Lymphatic: + cervical lymphadenopathy (Right anterior) Results & Data Results & Data ([facility]) Vital Signs (Past 12 Hours) Vital Signs Temp Pulse Resp BP Pulse Ox 01/13/21 11:30 76 20 158/84 H 96 01/13/21 09:16 36.8 C 81 18 165/[address] soft tissue neck w con IMPRESSION: 1. Moderate subcutaneous edema of the right mandibular and submandibular tissues suggests cellulitis without abscess or soft tissue mass. 2. Mildly prominent submandibular lymph nodes are likely reactive. Code Status & VTE Plan Code Status Full VTE Prophylaxis Plan Reason for no VTE drug order: Treatment not indicated Reason for no VTE mechanical prophylaxis: Treatment not indicated PG Care Time/CCT Total # of Minutes Spent Total Time Spent with Patient: Total time spent is greater than 50% in coordination of care (as documented) at patient's floor/unit and/or counseling patient: Coding Level of Care Code 35893 OBS Care - Level 2 Diagnoses Facial cellulitis L03.211 MORGAN (acute kidney injury) N17.9 Vitamin D deficiency E55.9 Osteopenia M85.80 Moderate aortic stenosis I35.0 Bicuspid aortic valve Q23.1 Moderate obstructive sleep apnea G47.33 Hypertension I10 Hypothyroidism E03.9 Lizeth's thyroiditis E06.3 Goiter E04.9
[2021-01-13] MEDS ORDERED: metroNIDAZOLE 500 MG/100 ML BAG IV STA (13:00)
[2021-01-13] MEDS ORDERED: ONDANSETRON INJ 2 MG/ML 2 ML VIAL IV PRN (14:53)
[2021-01-13] MEDS ORDERED: POLYETHYLENE (MIRALAX) 17 GM PACK PO PRN (14:53)
[2021-01-13] MEDS ORDERED: oxyCODONE HCL IR 5 MG TAB (IMMEDIATE RELEASE) PO PRN (14:53)
[2021-01-13] MEDS: SODIUM CHLORIDE 0.9% 1000ML 1,000 ML IV SCH ×2 (14:58→22:58)
[2021-01-13] MEDS: ASPIRIN 81 MG ECTAB PO SCH (20:47)
[2021-01-13] MEDS: METOPROLOL SUCC 50MG EXT REL TAB PO SCH (20:47)
[2021-01-13] MEDS: metroNIDAZOLE 500 MG/100 ML BAG IV SCH (20:47)
[2021-01-13] MEDS: CHLORHEXIDINE GLUCONATE 0.12% 480 ML MT SCH (20:47)
[2021-01-14] MEDS: ACETAMINOPHEN 325 MG TAB PO PRN ×3 (00:33→20:54)
[2021-01-14] MEDS: LEVOTHYROXINE SODIUM 75 MCG TABLET PO SCH (05:33)
[2021-01-14] MEDS: metroNIDAZOLE 500 MG/100 ML BAG IV SCH ×2 (05:33→14:50)
[2021-01-14 06:18] LABS: Basophils # (auto) 0.02 K/uL (0-0.2); Basophils % (auto) 0.2 %; Hematocrit (blood only) 35.5 % (37-47); Immature Granulocytes # (auto) 0.02 K/uL (0.00-0.02); Immature Granulocytes % (auto) 0.2 %; Lymphocytes # (auto) 1.81 K/uL (1.2-3.4); Lymphocytes % (auto) 17.6 %; Mean Corpuscular Hemoglobin 32.9 pg (25-34); Mean Corpuscular Hgb Conc 33.8 g/dL (32-36); Mean Corpuscular Volume 97.3 fL (80-100); Mean Platelet Volume 9.8 fL (7.4-10.4); Monocytes # (auto) 1.26 K/uL (0.11-0.59); Monocytes % (auto) 12.2 %; Neutrophils # (auto) 7.08 K/uL (1.4-6.5); Neutrophils % (auto) 68.8 %; Platelet Count 199 K/uL (130-400); RDW Coefficient of Variation 13.5 % (11.5-14.5); RDW Standard Deviation 47.5 fL (36.4-46.3); Red Blood Count 3.65 M/uL (4.2-5.4); White Blood Count 10.29 K/uL (4.8-10.8)
[2021-01-14 06:46] LABS: BUN Creatinine Ratio 15.7 (10-20); Calcium 8.5 mg/dl (8.5-10.1); Creatinine Clr Calc Pharmacy 40.6 ml/min; Est GFR (African American) 56.4; Est GFR (Non-African American) 48.7; Potassium 4.5 mmol/L (3.5-5.1)
[2021-01-14] MEDS: SODIUM CHLORIDE 0.9% 1000ML 1,000 ML IV SCH (09:09)
[2021-01-14] MEDS: hydroCHLOROthiazide 25 MG TAB PO SCH (09:10)
[2021-01-14] MEDS: CHLORHEXIDINE GLUCONATE 0.12% 480 ML MT SCH ×2 (09:10→20:59)
[2021-01-14] MEDS: lisinopril 20 MG TAB PO SCH (09:11)
[2021-01-14] MEDS: VITAMIN B COMPLEX TAB PO SCH (09:11)
[2021-01-14] MEDS: METOPROLOL SUCC 50MG EXT REL TAB PO SCH ×2 (09:11→20:58)
[2021-01-14] MEDS ORDERED: cefTRIAXone SODIUM 1,000 MG in DEXTROSE 5% 50 ML IV SCH (12:00)
--- NOTE | 2021-01-14 12:48 | Hospitalist Progress Note ---
Date of Service January 14, 2021 Assessment & Plan (1) Facial cellulitis: Patient presents with dental infection leading to right-sided facial and neck cellulitis with lymphadenopathy Leukocytosis is resolved today after treatment with IV ceftriaxone and metronidazole -Consult OMFS-await further recommendations Continue IV antibiotics -Continue chlorhexidine rinses twice daily -No evidence of dysphagia at this time (2) MORGAN (acute kidney injury): Acute kidney injury in the setting of CKD stage III Creatinine 1.51 on admission, secondary to poor p.o. 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 Denies headache or sore throat, no shortness of breath or chest pain, no abdominal pain or nausea, no diarrhea. I discussed the case with Dr. Brown of [facility] [place] Review of Systems Review of Systems: All systems reviewed & are unremarkable except as noted in HPI & below Was able to chew and swallow her food with minor difficulty Physical Exam Constitutional: WD/WN, vitals as above Eyes: + anicteric sclerae; no conjunctival abnormality ENMT: Ears: no hearing impairment Nose: no nasal discharge Mouth: + oral mucosal abnormality (Right lower gumline with significant erythema, bogginess,+TTP); no lip abnormality, no oropharynx abnormality and no tongue abnormality Neck: trachea midline, no thyromegaly + abnormal visual inspection (Positive edema the right side of the face with mild erythema) Respiratory: normal respiratory effort, lungs clear to auscultation Cardiovascular: Rate/Rhythm: regular rate and regular rhythm Heart Sounds: + murmur (3/6 JAVIER at the RUSB) Chest (Breasts): Chest: normal inspection of chest Gastrointestinal (Abdomen): normal bowel sounds, soft, nontender, no hepatosplenomegaly Musculoskeletal: Extremities: extremities normal to inspection; no cyanosis and no clubbing Skin: no rashes, warm and dry Neurologic: moves all extremities and awake; no focal motor deficits Psychiatric: A+Ox3, euthymic affect Lymphatic: + cervical lymphadenopathy (Right-sided submandibular) Results & Data Results & Data ([facility]) Vital Signs (Past 12 Hours) Vital Signs Temp Pulse Resp BP Pulse Ox 01/14/21 07:50 36.8 C 62 16 114/61 98 Laboratory Results 01/14/21 05:48 01/14/21 05:48 PG Care Time/CCT Total # of Minutes Spent Total Time Spent with Patient: Total time spent is greater than 50% in coordination of care (as documented) at patient's floor/unit and/or counseling patient: Coding Level of Care Code 66238 Subseq Hosp Care Lvl 2 Diagnoses Facial cellulitis L03.211 MORGAN (acute kidney injury) N17.9 Vitamin D deficiency E55.9 Osteopenia M85.80 Moderate aortic stenosis I35.0 Moderate obstructive sleep apnea G47.33 Bicuspid aortic valve Q23.1 Lizeth's thyroiditis E06.3 Hypertension I10 Hypothyroidism E03.9 DVT prophylaxis Z29.9
--- NOTE | 2021-01-14 19:03 | Surgery Consultation ---
Date of Consultation January 14, 2021 Oral Maxillofacial Surgery Exam Based on the location of the swelling and the CT evidence of radiolucent areas below the roots of # 29 and # 30 I feel that the infection originated from one or both of these teeth. Heat, massage, oral antibiotics, dental exam with dental X Rays of lower right molars is the treatment of choice. Present Complaint: I have developed pain/swelling right lower jaw line that started Sat night and got worse Sun. Came to ER and was admitted for acute right side facial infection. Patients states mild dental Symptoms--my lower teeth hurt. Oral Exam: Finding--right subperiosteal swelling associated with teeth 28-29-30 area, tender gingival tissue with deep pocket formation.Periodontal inflammation is present Imaging: Evaluated CT scan on 3-D work station with [employer] technology--there appears to be a periapical lesion at apex of # 29 and 30. Dental x rays needed--patient made aware of this fact. Soft tissue: floor of the mouth, tongue, hard/soft palate, posterior pharyngeal area all with in normal limits, no pathology or abnormal findings noted in these regions Right side of jaw is swollen w/o abscess formation, recent IV antibiotics helped with swelling and symptoms. Still intra oral swelling in the muco gingival tissues about teeth 28-31. No skin lesions noted, no ulcers. No lesions noted that require Bx. Nothing needs to be drained. Oral Care: Overall oral care is fair Occlusion: Class I TMJ exam: No pop, clicking, pain, good ROM, No history of TMJ injury or dysfunction Periodontal exam: Mild gingival tissue inflammation mostly lower right side evidence of periodontal pathology is noted Head/Neck exam: Neck is supple, FROM, Able to extend and flex neck w/o difficulty, no masses, no abnormalities, no airway issues, no evidence of sleep apnea. Treatment Plan: Maintain IV antibiotics tonight Can switch to oral meds tomorrow with possible Discharge Continue heat and massage to swollen area. Call Dr Weiss to get [facility] dental X Rays of lower right teeth an de mail to Dr Brown--she has my e mail. Based on X Rays I will suggest a Tx plan--extraction of # 29 which I can do in office with local. I reviewed the treatment plan with Margarita. Understanding was expressed. Time was given for questions regarding the surgery, risks and post op care. Discussed alternative to treatment--procedure as planned, Do not do surgery--infection can start up again MUST SEE HER DENTIST FOR X RAYS NONA Risks discussed: Pain,swelling,infection, dry socket, delayed healing, nerve injury to face,lips,tongue,chin area which could be permanent (rare). TMJ, jaw stiffness, change in bite (rare), ear pain (referred). Sinus problems like fistula or infection. Need to leave a small root fragment in place to avoid injury to nerve or sinus. Relationship of wisdom teeth to nerve/sinus and risk of jaw fracture. Home care reviewed: tooth brushing, rinsing, follow up care with Dr Brown and family dentist diet=[id number]-asdk dental. Surgery to be set up after I review the dental X Rays Margarita has my card for follow up. History of Present Illness Attending Physician: Judith Lujan MD Allergies Allergy/AdvReac Type Severity Reaction Status Date / Time Penicillins Allergy Mild Verified 01/13/21 10:34 Home Medications Medication Instructions Recorded Confirmed Type aspirin 81 mg tablet,delayed 81 mg PO HS 12/19/20 01/13/21 History release hydrochlorothiazide 12.5 mg tablet 12.5 mg PO QAM 12/19/20 01/13/21 History lisinopril 20 mg tablet 20 mg PO QAM 12/19/20 01/13/21 History metoprolol succinate 100 mg 50 mg PO BID 12/19/20 01/13/21 History tablet,extended release 24 hr cholecalciferol (vitamin D3) 0 mcg PO QAM 01/13/21 01/13/21 History [Vitamin D3] cranberry fruit concentrate 0 mg PO QAM 01/13/21 01/13/21 History levothyroxine 75 mcg PO DAILYBB 01/13/21 01/13/21 History vitamin B complex 1 tab PO QAM 01/13/21 01/13/21 History Patient History Medical History Bicuspid aortic valve Goiter Lizeth's thyroiditis Hyperlipidemia Hypertension Hypothyroidism Moderate aortic stenosis Moderate obstructive sleep apnea Osteopenia Vitamin D deficiency Social History Smoking Status: Never smoker Hx Alcohol Use: No Hx Substance Use: No Preferred Language: Nigerian Communication Ability: Effective Beliefs That Will Affect Care: None Current Living Situation: Spouse Other Information That Helps Us Care for You: No Feels Safe at Home: Yes Safety Concerns: Feels Safe At This Time Assistive Devices: None Results & Data ([facility]) Vital Signs (Past 12 Hours) Vital Signs Temp Pulse Pulse Resp BP Pulse Ox 01/14/21 15:10 36.8 C 65 18 120/66 98 01/14/21 07:50 36.8 C 62 16 114/61 98 PG Care Time/CCT Total # of Minutes Spent Total Time Spent with Patient: Total time spent is greater than 50% in coordination of care (as documented) at patient's floor/unit and/or counseling patient: Coding Level of Care Code 78459 Initial Inpt Care Lvl 3
[2021-01-14] MEDS: CLINDAMYCIN 600 MG in DEXTROSE 5% 50 ML IV SCH (20:57)
[2021-01-14] MEDS: ASPIRIN 81 MG ECTAB PO SCH (20:58)
[2021-01-15] MEDS: CLINDAMYCIN 600 MG in DEXTROSE 5% 50 ML IV SCH (05:30)
[2021-01-15] MEDS: LEVOTHYROXINE SODIUM 75 MCG TABLET PO SCH (05:33)
[2021-01-15] MEDS: lisinopril 20 MG TAB PO SCH (08:15)
[2021-01-15] MEDS: hydroCHLOROthiazide 25 MG TAB PO SCH (08:16)
[2021-01-15] MEDS: CHLORHEXIDINE GLUCONATE 0.12% 480 ML MT SCH (08:17)
[2021-01-15] MEDS: METOPROLOL SUCC 50MG EXT REL TAB PO SCH (08:17)
[2021-01-15] MEDS: VITAMIN B COMPLEX TAB PO SCH (08:17)
--- NOTE | 2021-01-15 11:16 | Discharge Summary ---
Date of Service January 15, 2021 Admission HPI Per Admitting Provider Margarita Lang is a 75-year-old female who presents to the ER with right facial [id number], 6:35 mild symptoms of headache, low grade fever, tooth and ear pain. Increasing right-sided jaw/face swelling and redness, right ear pain and right tooth pain since yesterday. She reports having the 1st Pfizer COVID vaccination 4 days ago. Principal Diagnosis Right-sided facial cellulitis and dental infection, acute kidney injury Discharge Exam Constitutional WD/WN, vitals as above Eyes + anicteric sclerae; no conjunctival abnormality ENMT Ears: no hearing impairment Nose: no nasal discharge Mouth: + oral mucosal abnormality (Right lower gumline erythema much improved); no lip abnormality, no oropharynx abnormality and no tongue abnormality Neck trachea midline, no thyromegaly + abnormal visual inspection (Positive edema the right side of the face with mild erythema much improved) Respiratory normal respiratory effort, lungs clear to auscultation Cardiovascular Rate/Rhythm: regular rate and regular rhythm Heart Sounds: + murmur (3/6 JAVIER at the RUSB) Chest (Breasts) Chest: normal inspection of chest Gastrointestinal (Abdomen) normal bowel sounds, soft, nontender, no hepatosplenomegaly Musculoskeletal Extremities: extremities normal to inspection; no cyanosis and no clubbing Skin no rashes, warm and dry Neurologic moves all extremities and awake; no focal motor deficits Psychiatric A+Ox3, euthymic affect Lymphatic + cervical lymphadenopathy (Right-sided submandibular smaller in size from previous) Discharge Data Allergies Allergy/AdvReac Type Severity Reaction Status Date / Time Penicillins Allergy Mild Verified 01/13/21 10:34 Consultations 01/13/21 12:37 ED Decision to Admit Stat 01/14/21 12:46 Consult Oromaxillofacial Surgery Routine Ordered Studies 01/13/21 09:37 CT soft tissue neck w con Stat Hospital Course (1) Facial cellulitis: Patient presents with dental infection leading to right-sided facial and neck cellulitis with lymphadenopathy Leukocytosis is resolved and edema and erythema of the right side of the face and neck as well as lymphadenopathy are all significantly improved after treatment with IV ceftriaxone and metronidazole x48 hours -Consult [id number] dental x-rays and likely root canal following that as an outpatient Discharge to home on clindamycin 600 mg p.o. every 8 hours times total of 7 days including the 2 days of treatment received here -Continue chlorhexidine rinses twice daily at home -No evidence of dysphagia at this time Much improved (2) MORGAN (acute kidney injury): Acute kidney injury in the setting of CKD stage III Creatinine 1.51 on admission, secondary to poor p.o. 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, follows with endocrinology Continue levothyroxine 75 for now (9) Hypertension: Blood pressures are controlled Continue home lisinopril, HCT, metoprolol (10) Hypothyroidism: As above (11) DVT prophylaxis: SCDs Dispo-discharge to home Total Time Total Time Spent Total Time Spent (In Minutes): 35 min Total Time Includes: Examination of the Patient, Discharge Planning and Medication Reconciliation Discharge Plan Discharge Items Patient Disposition: Home - Self-Care Reason For Visit: FACIAL CELLULITIS Discharge Diagnosis: Facial infection with etiology from lower right teeth Condition on Discharge: Good Activity: Resume your previous activity Non-emergency contact: Primary Care Provider and Surgeon Call non-emergency contact if: you have any medication questions, your symptoms worsen and your pain is not controlled Follow-up/Referrals: Yadi Moreno MD [Primary Care Provider] - (Follow-up within 1 week-would like appointment preferably early in the morning.) Dwayne Brown DMD [Physician] - (Follow-up within 1 week after obtaining x- rays to your dentist.) Diet: Regular Diet Texture: Easy to Chew Addtl Attending Provider Instructions: Please finish out the course of antibiotics with clindamycin 600 mg by mouth 3 times a day for 5 more days. Please continue the chlorhexidine mouth rinse twice a day. Follow-up with your dentist tomorrow as scheduled for x-rays and with Dr. Brown after that. ADDITIONAL ACTIVITY RECOMMENDATIONS: * [place] teeth after every meal. It is very important to keep your mouth clean to prevent infection. * Starting tonight rinse with the Peridex as directed then 2 x a day * it is very important to keep well hydrated, this prevents fever and possible dry socket pain SPECIAL CARE INSTRUCTIONS: * apply heat (hot water bottle or heating pad) for the next two days, as often as possible. * Tomorrow start rinsing your mouth with 1/2 teaspoon salt in 8 ounces warm water. This rinse should be used every 4-6 hours. * You may experience slight nausea. To prevent this, never take your medication on an empty stomach. If nauseated, take small sips of debbie toro until you feel better; then you may start on applesauce and toast. * Some swelling is common. It should gradually decrease within 4-5 days. * You may experience some discomfort for a few days. If pain or swelling increases, Call Dr Brown-- call Dr Brown at [phone] * please call your dentist and get the X Rays for the lower right side and e mail to Dr Brown * If you do not have a follow up appointment please call the office at [phone] and set one up for 10-15 days after your surgery Pending Studies at Discharge: No Stand-Alone Forms: My [facility] Medications and DC Order Prescriptions: New acetaminophen 325 mg Tablet 650 mg PO Q4H PRN (Reason: pain) Qty: 30 RF: 0 chlorhexidine gluconate 0.12 % Mouthwash 15 ml MT BID Qty: 118 RF: 0 clindamycin HCl 300 mg capsule 600 mg PO Q8H 5 Days Qty: 30 RF: 0 Continued hydrochlorothiazide 12.5 mg tablet 12.5 mg PO QAM RF: 0 lisinopril 20 mg tablet 20 mg PO QAM RF: 0 metoprolol succinate 100 mg tablet extended release 24 hr 50 mg PO BID RF: 0 aspirin [Adult Low Dose Aspirin] 81 mg tablet,delayed release (DR/EC) 81 mg PO HS RF: 0 vitamin B complex Tablet 1 tab PO QAM RF: 0 cholecalciferol (vitamin D3) [Vitamin D3] 25 mcg (1,000 unit) Tablet 0 mcg PO QAM RF: 0 cranberry fruit concentrate 500 mg Capsule 0 mg PO QAM RF: 0 levothyroxine 75 mcg tablet 75 mcg PO DAILYBB RF: 0 Discharge Orders: Discharge Order (Routine); Ordered 01/15/21 Ordered By: Judith Lujan Admission Data Admit Date/Time: 01/13/21 12:52 Attending Provider: Judith Lujan Admit Provider: Singh Barnett Primary Care Provider: Yadi Moreno Other Providers: Singh Barnett ; Dwayne Brown Coding Level of Care Code 35288 OBS Care - Discharge Diagnoses Facial cellulitis L03.211 MORGAN (acute kidney injury) N17.9 Vitamin D deficiency E55.9 Osteopenia M85.80 Moderate aortic stenosis I35.0 Moderate obstructive sleep apnea G47.33 Bicuspid aortic valve Q23.1 Lizeth's thyroiditis E06.3 Hypertension I10 Hypothyroidism E03.9 DVT prophylaxis Z29.9
--- NOTE | 2021-01-31 08:07 | Coding Query ---
A supporting diagnosis is required for the test/procedure performed on this patient in order for us to be reimbursed by the patient's insurance. Please provide a supporting diagnosis for the following test/procedure listed below next to the test name along with your signature. *If there is no additional diagnosis for this patient that would support the following test/procedure please document that below next to the test/procedure. Test(s)/Procedure(s) that require a supporting diagnosis: Hydration IV Infusion DIAGNOSIS: Acute kidney injury Provider Signature: Singh Barnett Date: __02/08/2021 Thank you Berenice Jones Health Information Management Once completed, please kindly fax back to [phone] For questions please call [phone] VAL
== END 2021-01-15 12:37 | disposition home or self-care (01) ==
LOC: ED 09:13 → 3W 09:13 → SUATTDRO 12:52 → 3W 13:55